=== PATIENT | male | born 1945 | race Caucasian/White ===

== ENCOUNTER → 2020-01-12 | Outpatient (CLI) | payer OTHER | LOC: SJCVC 08:30 | PROVIDERS: ATTEND Internal Medicine Cardiovascular Disease | DX: I25.10 Atherosclerotic heart disease of native coronary artery without angina pectoris (principal); I10 Essential (primary) hypertension; E78.00 Pure hypercholesterolemia, unspecified; G47.33 Obstructive sleep apnea (adult) (pediatric); R94.31 Abnormal electrocardiogram [ECG] [EKG]; Z99.89 Dependence on other enabling machines and devices ==

== ENCOUNTER → 2020-03-07 | Outpatient (CLI) | payer OTHER | LOC: SJCVCIMAG 08:30 | PROVIDERS: ATTEND Internal Medicine Cardiovascular Disease | DX: I34.0 Nonrheumatic mitral (valve) insufficiency (principal); I25.10 Atherosclerotic heart disease of native coronary artery without angina pectoris; I49.3 Ventricular premature depolarization ==

== ENCOUNTER → 2021-01-23 | Outpatient (CLI) | payer OTHER | LOC: SJCVC 10:16 | PROVIDERS: ATTEND Internal Medicine Cardiovascular Disease | DX: R94.31 Abnormal electrocardiogram [ECG] [EKG] (principal); I25.10 Atherosclerotic heart disease of native coronary artery without angina pectoris; E11.9 Type 2 diabetes mellitus without complications; I10 Essential (primary) hypertension; E78.00 Pure hypercholesterolemia, unspecified; G47.33 Obstructive sleep apnea (adult) (pediatric); Z99.89 Dependence on other enabling machines and devices; Z79.82 Long term (current) use of aspirin; Z79.899 Other long term (current) drug therapy; Z87.891 Personal history of nicotine dependence ==